=== PATIENT | male | born 1975 ===

== ENCOUNTER 2022-09-10 12:54 | Emergency (ER) | payer SELFPAY ==
[~2022-09-10] VITALS: Ht 165.1 cm; Wt 72.6 kg
== END 2022-09-10 14:10 | disposition home or self-care (01) ==
LOC: ER 12:54
DX: S05.12XA Contusion of eyeball and orbital tissues, left eye, initial encounter (principal); Y04.8XXA Assault by other bodily force, initial encounter
CPT/HCPCS: 70480; A9270